=== PATIENT | male | born 1950 | race Caucasian/White ===

== ENCOUNTER → 2017-05-01 | Outpatient (CLI) | payer OTHER | LOC: FIMAGING 16:52 | PROVIDERS: ATTEND Internal Medicine | DX: I82.4Z2 Acute embolism and thrombosis of unspecified deep veins of left distal lower extremity (principal) ==

== ENCOUNTER 2017-05-05 10:57 | Emergency (ER) | payer OTHER ==
[2017-05-05 11:08] VITALS: TEMP 98.2
[2017-05-05] MEDS ORDERED: LIDOCAINE 5% 1 EA PATCH TD ONE (11:44)
--- NOTE | 2017-05-05 11:47 | EDPHY ---
H & P Stated Complaint: dx dvt monday l leg/on oxy but still having pain Time Seen by Provider: 05/05/17 11:22 HPI/ROS: CHIEF COMPLAINT: Left leg pain HISTORY OF PRESENT ILLNESS: The patient presents the ED with complaints of pain in his left leg. The patient was diagnosed with a DVT Monday this week. He was started on anticoagulation at that time. Prior to this, the patient had chronic back pain requiring daily narcotics. He has been on 5 mg of oxycodone twice daily for some period of time. The patient reportedly has had increasing pain in his left leg which is not managed by his typical dose of narcotic medications. The patient has taken more than his typical dose of oxycodone. The patient denies any chest pain or shortness of breath. The patient denies any additional acute complaints. REVIEW OF SYSTEMS: A comprehensive 10 point review of systems is otherwise negative aside from elements mentioned in the history of present illness. Source: Patient Exam Limitations: No limitations - Personal History Current Tetanus/Diphtheria Vaccine: Unsure Tetanus Vaccine Date: 2004 - Medical/Surgical History Hx Asthma: No Hx Chronic Respiratory Disease: No Hx Diabetes: No Hx Cardiac Disease: No Hx Renal Disease: No Hx Cirrhosis: No Hx Alcoholism: No Hx HIV/AIDS: No Hx Splenectomy or Spleen Trauma: No Other PMH: prostate cancer/skin cancer/dvt - Social History Smoking Status: Never smoked - Physical Exam Exam: General Appearance: Alert, no distress Eyes: Pupils equal and round no pallor or injection ENT, Mouth: Mucous membranes moist Respiratory: There are no retractions, lungs are clear to auscultation Cardiovascular: Regular rate and rhythm Gastrointestinal: Abdomen is soft and nontender, no masses, bowel sounds normal Neurological: A&O, normal motor function, normal sensory exam, normal cranial nerves Skin: Warm and dry, no rashes Musculoskeletal: Neck is supple nontender Extremities: Tenderness to palpation left calf, 2+ dorsalis pedis and posterior tibial pulse noted left lower extremity, no cellulitis or abscess Constitutional: Initial Vital Signs Temperature (C) 36.8 C 05/05/17 11:04 Heart Rate 81 05/05/17 11:04 Respiratory Rate 18 05/05/17 11:04 Blood Pressure 161/102 H 05/05/17 11:04 O2 Sat (%) 97 05/05/17 11:04 O2 Delivery Mode Room Air Allergies/Adverse Reactions: milk [Milk] Allergy (Severe, Verified 05/05/17 11:03) DIARRHEA, VOMITING atorvastatin calcium [From Lipitor] Allergy (Intermediate, Verified 05/05/17 11: 03) MUSCLE SORENESS povidone-iodine [From Betadine Surgi-Prep] Allergy (Intermediate, Verified 05/05 11:03) Rash YOGART Allergy (Intermediate, Uncoded 12/21/10 10:57) DIARRHEA, VOMITING Home Medications: Medication Instructions Recorded Coumadin 05/05/17 Gabapentin [Neurontin 300 MG (*)] 300 mg PO HS PRN #30 cap 05/05/17 Lidocaine 5% [Lidoderm 5% Patch 1 ea TD DAILY #12 patch 05/05/17 (*)] Lovenox 05/05/17 Oxycodone HCl 05/05/17 Medical Decision Making ED Course/Re-evaluation: I reviewed the results of the patient's ultrasound study performed on the . He has no evidence of cellulitis or arterial insufficiency. The patient has no evidence of pulmonary embolism clinically. I do feel more comfortable attempting nonnarcotic management of the patient's symptoms instead of escalating his chronic dose of outpatient or cottage. The patient did have a Lidoderm patch applied in the ED. I have also given him a short prescription for gabapentin. The patient will be advised to return to the ER for markedly worsening symptoms , fever, difficulty breathing or other concerns. Differential Diagnosis: Differential diagnosis considered includes DVT, cellulitis, abscess, arterial thrombosis Departure - Departure Disposition: Home, Routine, Self-Care Clinical Impression: Left leg DVT Condition: Good Instructions: Deep Venous Thrombosis (ED) Additional Instructions: 1. You may take 10 mg of oxycodone every 6 hours as needed for pain. 2. Lidoderm patch as prescribed for pain. 3. You have also been given a prescription for gabapentin for pain control. 4. If you require additional pain management, please schedule a follow-up visit with your primary care provider. Referrals: Sara Devine MD [Primary Care Provider] - As per Instructions
[2017-05-05 12:09] VITALS: BP 122/86; PULSE 74; RESP 16; O2SAT 92
[2017-05-05] MEDS ORDERED: PATCH REMOVAL 1 EA PATCH TD SCH (21:00)
== END 2017-05-05 12:19 | disposition home or self-care (01) ==
DX: I82.402 Acute embolism and thrombosis of unspecified deep veins of left lower extremity (principal); Z85.46 Personal history of malignant neoplasm of prostate; Z79.01 Long term (current) use of anticoagulants

== ENCOUNTER → 2017-05-22 | Outpatient (CLI) | payer OTHER ==
[~2017-05-22] MED LIST: IOPAMIDOL (ISOVUE-300) 100 ML BTL ONE
== END ==
LOC: FIMAGING 11:57
PROVIDERS: ATTEND Internal Medicine
DX: I26.99 Other pulmonary embolism without acute cor pulmonale (principal); C61 Malignant neoplasm of prostate; Z86.718 Personal history of other venous thrombosis and embolism
CPT/HCPCS: Q9967

== ENCOUNTER 2017-08-29 12:51 | Inpatient (IN) | payer OTHER ==
[2017-08-29] MEDS ORDERED: IOPAMIDOL (ISOVUE 370) 100 ML BTL IV ONE (13:12)
[2017-08-29] MEDS ORDERED: ONDANSETRON 4 MG/2 ML VIAL IVP PRN (15:17)
[2017-08-29] MEDS ORDERED: ACETAMINOPHEN 325 MG TAB PO PRN (15:17)
[2017-08-29] MEDS ORDERED: ONDANSETRON DISINTEGRATING 4 MG TAB PO PRN (15:17)
[2017-08-29] MEDS ORDERED: ENOXAPARIN 120 MG/0.8 ML SYR SC SCH (15:30)
--- NOTE | 2017-08-29 15:42 | CPEKG ---
Heart Rate: 102 RR Interval: 588 QRSD Interval: 84 QT Interval: 344 QTC Interval: 449 QRS [place]: -67 T Wave [place]: 44 EKG Severity - ABNORMAL ECG - EKG Impression: ATRIAL FIBRILLATION, V-RATE 72-143 EKG Impression: INFERIOR INFARCT, AGE INDETERMINATE EKG Impression: CONSIDER ANTEROSEPTAL INFARCT EKG Impression: ATRIAL FIBRILLATION IS NEW IN COMPARISON TO PRIOR ECG. CLINICAL HISTORY OF EKG Impression: "LARGE" PE WHICH MAY CONTRIBUTE TO SOME OF THE ST/T WAVE CHANGES NOTED. WOULD EKG Impression: CONSIDER REPEAT ECG ASSESSMENT Electronically Signed By: Isreal Mack 29-Aug-2017 16:26:14
[2017-08-29 15:44] LABS: % IMMATURE GRANULYOCYTES 0.3 % (0.0-1.1); ABSOLUTE IMMATURE GRANULOCYTES 0.03 10^3/uL (0.00-0.10); ADD DIFF? NO; ADD MORPH? NO; ADD SCAN? NO; ATYPICAL LYMPHOCYTE FLAG 0 (0-99); FRAGMENT RBC FLAG 0 (0-99); HEMATOCRIT 49.6 % (40.0-51.0); HEMOGLOBIN 17.8 g/dL (13.7-17.5); LEFT SHIFT FLG 0 (0-99); LIPEMIA HEMOLYSIS FLAG 90 (0-99); MEAN CELL HEMOGLOBIN 32.5 pg (27.9-34.1); MEAN CELL HEMOGLOBIN CONCENTR. 35.9 g/dL (32.4-36.7); MEAN CELL VOLUME 90.5 fL (81.5-99.8); MEAN PLATELET VOLUME 9.4 fL (8.7-11.7); PLATELET CLUMPS FLAG 0 (0-99); PLATELET COUNT 162 10^3/uL (150-400); RED BLOOD CELL COUNT 5.48 10^6/uL (4.40-6.38); RED CELL DISTRIBUTION WIDTH 12.8 % (11.5-15.2)
--- NOTE | 2017-08-29 15:51 | PDGENHP ---
History and Physical - Chief Complaint wheezing, SOB - History of Present Illness 67 yo male with h/o prostate cancer diagnosed in 2010 presented to outpt clinic with SOB. He was sent for a CTPA, which showed large volume b/l PE's. He developed DVT in 04/2017 and was started on Lovenox and Coumadin. A CT chest / abd / pelvis was performed in 05/2017 to evaluate for recurrence of malignancy as a source of his DVT. This revealed no malignancy, but a small to moderate volume PE was identified in the RLL. 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 He planned for shoulder surgery in September. He felt well since discontinuing his coumadin and his RLE swelling decreased. 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 Today, he was shoveling dirt and again noticed worsening dyspnea and presented to his PCP's clinic. He denies CP or pleuritic symptoms. He had a flight from [place] 2 months ago, though was anticoagulated at that time. He has had no travel or surgeries since stopping his coumadin 3 weeks ago. He was seen by Dr. Low at [facility] and an initial hypercoagulable workup was sent. He still has some LE edema, but he feels this is improved. No fevers. No abdominal pain, N/V/D or urinary symptoms. He recently had a Botox injection into his bladder for radiation related bladder spasms. He drinks 5 alcoholic beverages per day and has not gone >24 hrs without a drink since the 70's he says. He denies any h/o withdrawal or seizures. He is not interested in alcohol cessation. History Information - Allergies/Home Medication List Allergies/Adverse Reactions: milk [Milk] Allergy (Severe, Verified 05/05/17 11:03) DIARRHEA, VOMITING atorvastatin calcium [From Lipitor] Allergy (Intermediate, Verified 05/05/17 11: 03) MUSCLE SORENESS povidone-iodine [From Betadine Surgi-Prep] Allergy (Intermediate, Verified 05/05 11:03) Rash YOGART Allergy (Intermediate, Uncoded 12/21/10 10:57) DIARRHEA, VOMITING Home Medications: Coumadin 05/05/17 [Last Taken Unknown] Lovenox 05/05/17 [Last Taken Unknown] Oxycodone HCl 05/05/17 [Last Taken Unknown] I have personally reviewed and updated: family history, medical history, social history, surgical history - Past Medical History cancer, hypertension, hyperlipidemia Additional medical history: hepatic steatosis, ?alcohol induced. prostate cancer, s/p prostatectomy 2010. 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 Review of Systems Review of Systems: ROS: 10pt was reviewed & negative except for what was stated in HPI & below Physical Exam Physical Exam: Constitutional: no apparent distress, other (lasha complexion) Eyes: PERRL Ears, Nose, Mouth, Throat: moist mucous membranes Cardiovascular: regular rate and rhythym, no murmur, rub, or gallop Respiratory: no respiratory distress, clear to auscultation Gastrointestinal: normoactive bowel sounds, soft, non-tender abdomen, other ( obese) Skin: warm Musculoskeletal: full muscle strength, other (b/l 1+ non-pitting LE edema with some mild brawny discoloration) Neurologic: AAOx3 Psychiatric: interacting appropriately Lab Data & Imaging Review 08/29/17 15:30 08/29/17 15:30 WBC 8.67 10^3/uL (3.80-9.50) 08/29/17 15:30 RBC 5.48 10^6/uL (4.40-6.38) 08/29/17 15:30 Hgb 17.8 g/dL (13.7-17.5) H 08/29/17 15:30 Hct 49.6 % (40.0-51.0) 08/29/17 15:30 MCV 90.5 fL (81.5-99.8) 08/29/17 15:30 MCH 32.5 pg (27.9-34.1) 08/29/17 15:30 MCHC 35.9 g/dL (32.4-36.7) 08/29/17 15:30 RDW 12.8 % (11.5-15.2) 08/29/17 15:30 Plt Count 162 10^3/uL (150-400) 08/29/17 15:30 MPV 9.4 fL (8.7-11.7) 08/29/17 15:30 Neut % (Auto) 75.2 % (39.3-74.2) H 08/29/17 15:30 Lymph % (Auto) 14.5 % (15.0-45.0) L 08/29/17 15:30 Pickett % (Auto) 8.7 % (4.5-13.0) 08/29/17 15:30 Eos % (Auto) 0.8 % (0.6-7.6) 08/29/17 15:30 Baso % (Auto) 0.5 % (0.3-1.7) 08/29/17 15:30 Nucleat RBC Rel Count 0.0 % (0.0-0.2) 08/29/17 15:30 Absolute Neuts (auto) 6.52 10^3/uL (1.70-6.50) H 08/29/17 15:30 Absolute Lymphs (auto) 1.26 10^3/uL (1.00-3.00) 08/29/17 15:30 Absolute Monos (auto) 0.75 10^3/uL (0.30-0.80) 08/29/17 15:30 Absolute Eos (auto) 0.07 10^3/uL (0.03-0.40) 08/29/17 15:30 Absolute Basos (auto) 0.04 10^3/uL (0.02-0.10) 08/29/17 15:30 Absolute Nucleated RBC 0.00 10^3/uL (0-0.01) 08/29/17 15:30 Immature Gran % 0.3 % (0.0-1.1) 08/29/17 15:30 Immature Gran # 0.03 10^3/uL (0.00-0.10) 08/29/17 15:30 POC Creatinine 1.3 mg/dL (0.7-1.3) 08/29/17 13:17 Visualized and Interpreted EKG results: Yes EKG additional interpertation: ST elevation anterior leads, ?strain, no reciprocal ST depression in V5,V6 Assessment & Plan Assessment: PE - B/L extensive clot burden. PESI score 105, intermediate risk. Note prior DVT and PE history. +e/o right heart strain on CT and EKG. Requiring 3 LPM O2. No tachycardia or hypotension. Daughter with arterial clot recently, raises suspicion for genetic hypercoagulable state. FVL neg in 07/2017. -Start Lovenox/coumadin, will need lifelong anticoagulation. Note HAS-BLED score 3. -telemetry monitoring, O2 -Echo now -trend troponin -check LE u/s -Discussed with Heme, who will see pt. Add on protein C, protein S, lupus anticoagulant, and antithrombin A fib - new Dx. Etoh and PE are risk factors. Chads-vasc Rate controlled currently. No e/o heart failure. -check TSH, echo -trend trop -anticoagulation as above -add dilt if needed for rate control ST elevation on EKG - likely represents strain in setting of large clot burden. No reciprocal ST depression. Pt chest pain free. Discussed with cards. -repeat EKG now -cycle trop Alcohol dependence - no interest in cessation. 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 Hypertension - BP ok on admission, awaiting med rec. Hyperlipidemia - awaiting med rec, but looks like no statin -check lipid status H/O Prostate cancer Full code Dispo - Inpt, will likely require >48 hrs hospitalization for ongoing management of his PE and associated hypoxemia and EKG changes
[2017-08-29 15:54] LABS: INR 1.15 (0.83-1.16); PROTIME(PATIENT) 14.6 SEC (12.0-15.0)
[2017-08-29 16:06] LABS: ALANINE AMINOTRANSFERASE 136 IU/L (21-72); ALBUMIN 4.4 g/dL (3.5-5.0); ALKALINE PHOSPHATASE 82 IU/L (38-126); ANION GAP 14 mEq/L (8-16); ASPARTATE AMINOTRANSFERASE 92 IU/L (17-59); BILIRUBIN,TOTAL 0.9 mg/dL (0.1-1.4); BILIRUBIN-CONJUGATED 0.3 mg/dL (0.0-0.5); BILIRUBIN-UNCONJUGATED 0.6 mg/dL (0.0-1.1); CALCIUM 9.5 mg/dL (8.5-10.4); CARBON DIOXIDE 23 mEq/l (22-31); CHLORIDE 102 mEq/L (97-110); CREATININE 1.2 mg/dL (0.7-1.3); GLOMERULAR FILTRATION RATE > 60; GLUCOSE 101 mg/dL (70-100); SODIUM 139 mEq/L (134-144); TOTAL PROTEIN 6.9 g/dL (6.3-8.2)
--- NOTE | 2017-08-29 16:35 | CPEKG ---
Heart Rate: 103 RR Interval: 583 QRSD Interval: 84 QT Interval: 352 QTC Interval: 461 QRS [place]: -63 T Wave [place]: 39 EKG Severity - ABNORMAL ECG - EKG Impression: ATRIAL FIBRILLATION EKG Impression: LAD, CONSIDER LAFB OR INFERIOR INFARCT EKG Impression: ANTERIOR INFARCT, AGE INDETERMINATE Electronically Signed By: Frank Rubi 30-Aug-2017 11:35:26
[2017-08-29] MEDS ORDERED: WARFARIN SODIUM 5 MG TAB PO ONE (17:00)
[2017-08-29] MEDS ORDERED: DIAZEPAM 10 MG TAB PO PRN (18:38)
[2017-08-29] MEDS: VODKA 50 ML BOTTLE PO SCH (18:42)
[2017-08-29] MEDS ORDERED: NON-FORMULARY NEW DRUG (Simvastatin [Simvastatin] 40 MG) PO SCH (21:00)
[2017-08-29] MEDS ORDERED: ZOLPIDEM TARTRATE 5 MG TAB PO SCH (21:00)
[2017-08-29] MEDS ORDERED: NON-FORMULARY NEW DRUG (Zolpidem Tartrate [Zolpidem Tartrate Er] 12.5 MG) PO SCH (21:00)
--- NOTE | 2017-08-29 21:11 | ECHO ---
[email or web address] [address] [address] Main: [phone] Fax: Transthoracic Echocardiogram Name: STEFAN CAMPOS MR#: [id number] Study Date: 08/29/2017 Study Time: 03:34 PM Date of : 1950 Age: 67 year(s) Height: 185.4 cm (73 in.) Weight: 127.01 kg (280 lb.) BSA: 2.48 m2 Gender: Male Examination: Echo Indication: PE, eval for right heart strain Image Quality: Technically Difficult Contrast: Requested by: Nicolette Serrano BP: 124 mmHg/74 mmHg Heart Rate: Rhythm: Atrial fibrillation Indication: PE, eval for right heart strain Procedure Staff Offal Separator: Kourtney Beyer Reading Physician: Casa Loza Requesting Provider: Conclusions: Normal size left ventricle. Mild concentric LV hypertrophy. Mildly reduced systolic LV function. EF is 42 %. Mildly to moderately dilated right ventricle. Flattened interventricular septum consistent with right ventricular pressure and/or volume overload free wall. The right atrium is mildly to moderately dilated. Trivial mitral valve regurgitation. Mild to moderate tricuspid valve regurgitation. The pulmonary artery pressure is mildly increased. LVEF has decreased compared to 12/31/2010. Measurements: Chambers Valvular Assessment AV/MV Valvular Assessment TV/PV Normal Normal Normal Name Value Range Name Value Range Name Value Range Ao Jasmyne (MM): 3.1 cm (2.2 cm-3.7 AV Vmax: 1.19 m/s (1 m/s-1.7 TR Vmax: 2.57 mm/s ( - ) cm) m/s) TR PGmax: 26 mmHg ( - ) IVSd (2D): 1.0 cm (0.6 cm-1.1 AV maxP mmHg ( - ) syst. PAP: 36 mmHg ( - ) cm) LVOT Vmax: 1.01 m/s (0.7 m/s-1.1 PV Vmax: 1.26 m/s (0.6 m/s-0.9 LVDd (2D): 4.5 cm (4.2 cm-5.9 m/s) m/s) cm) MV E Vmax: 0.96 m/s ( - ) PV PGmax: 6 mmHg ( - ) LVDs (2D): 3.5 cm (2.1 cm-4 cm) LVPWd (2D): 1.0 cm (0.6 cm-1 cm) LVEF (2D): 42 (>=54 %) Patient: STEFAN CAMPOS Study Date: 08/29/2017 Page 1 of 2 03:34 PM RVDd(2D): 4.4 cm (1.9 cm-3.8 cmmm) Continued Measurements: Chambers Valvular Assessment AV/MV Valvular Assessment TV/PV Name Value Name Value Name Value LADs: 5.0 cm MV DecTime: 213 m/s CVP (est.): 10 mmHg LADs Lon.0 cm LA Area: 15.2 cm2 TAPSE: 1.6 cm Additional Vessels Name Value Ao Ascendin.8 cm Findings: Left Ventricle: Normal size left ventricle. Mild concentric LV hypertrophy. Mildly reduced systolic LV function. EF is 42 %. Right Ventricle: Mildly to moderately dilated right ventricle. Mildly reduced RV function. Flattened interventricular septum consistent with right ventricular pressure and/or volume overload free wall. Left Atrium: The left atrium is normal in size. Right Atrium: The right atrium is mildly to moderately dilated. Mitral Valve: The mitral valve is normal in appearance. Trivial mitral valve regurgitation. Aortic Valve: The aortic valve is tri-leaflet. There is no aortic valve regurgitation. No aortic valve stenosis is present. Tricuspid Valve: The tricuspid valve appears normal. Mild to moderate tricuspid valve regurgitation. The pulmonary artery pressure is mildly increased. Pulmonic Valve: Pulmonary valve not well visualized. Aorta: Normal size aortic root measuring 3.1 cm. Normal size ascending aorta measuring 2.8 cm. Pericardium: Trivial anterior pericardial effusion. There is pericardial fat. (No Signature Object) Patient: STEFAN CAMPOS Study Date: 08/29/2017 Page 2 of 2 03:34 PM [id number]
[2017-08-29] MEDS: DIAZEPAM 5 MG TAB PO PRN (21:27)
[2017-08-29] MEDS: GABAPENTIN 300 MG CAP PO SCH (21:27)
[2017-08-29] MEDS: oxyCODONE IR 5 MG TAB PO PRN (21:28)
[2017-08-29] MEDS: SIMVASTATIN 40 MG PO SCH (21:35)
[2017-08-29] MEDS ORDERED: NON-FORMULARY NEW DRUG (Gabapentin [Neurontin] 600 MG) PO SCH (22:00)
[2017-08-30 04:12] LABS: INR 1.16 (0.83-1.16); PROTIME(PATIENT) 14.8 SEC (12.0-15.0)
[2017-08-30 04:46] LABS: ALANINE AMINOTRANSFERASE 93 IU/L (21-72); ALBUMIN 3.4 g/dL (3.5-5.0); ALKALINE PHOSPHATASE 67 IU/L (38-126); ANION GAP 12 mEq/L (8-16); ASPARTATE AMINOTRANSFERASE 51 IU/L (17-59); BILIRUBIN,TOTAL 0.5 mg/dL (0.1-1.4); CARBON DIOXIDE 22 mEq/l (22-31); CHLORIDE 105 mEq/L (97-110); CHOLESTEROL 124 mg/dL (140-220); CHOLESTEROL/HDL RATIO 3.02 RATIO (1.00-4.97); CREATININE 1.2 mg/dL (0.7-1.3); GLOMERULAR FILTRATION RATE > 60; GLUCOSE 103 mg/dL (70-100); HIGH DENSITY LIPOPROTEIN 41 mg/dL (40-65); LDL/HDL RATIO 1.39 RATIO (1.00-3.64); LOW DENSITY LIPOPROTEIN 57 mg/dL (80-100); NON-HIGH DENSITY LIPOPROTEIN 83 mg/dL (90-129); POTASSIUM 4.1 mEq/L (3.5-5.2); SODIUM 139 mEq/L (134-144); TOTAL PROTEIN 5.5 g/dL (6.3-8.2); TRIGLYCERIDE 130 mg/dL (40-150); VERY LOW DENSITY LIPOPROTEINS 26 mg/dL (8-25)
[2017-08-30] MEDS: ENOXAPARIN 30 MG/0.3 ML SYR SC SCH ×2 (06:26→18:14)
[2017-08-30] MEDS: ENOXAPARIN 100 MG/ML SYR SC SCH ×2 (06:26→18:12)
[2017-08-30] MEDS: ASPIRIN EC 81 MG TAB PO SCH (08:24)
[2017-08-30] MEDS: FENOFIBRATE 48 MG TAB PO SCH (08:24)
[2017-08-30] MEDS: GABAPENTIN 300 MG CAP PO SCH ×3 (08:24→21:12)
[2017-08-30] MEDS: DILTIAZEM XR 240 MG CAP PO SCH (08:25)
[2017-08-30] MEDS ORDERED: LISINOPRIL/HCTZ 20/12.5MG 1 EA TAB PO SCH (09:00)
[2017-08-30] MEDS ORDERED: DILTIAZEM HCL 240 MG PO SCH (09:00)
[2017-08-30] MEDS ORDERED: FESOTERODINE FUMARATE 8 MG TAB.ER PO SCH (09:00)
--- NOTE | 2017-08-30 09:18 | ASMTCMCOM ---
CM Note CM Note Notes: Chart reviewed. Patient has bilateral PE's. on oxygen. Lived independent with his . Not interested in alcohol cessation, but will provide information.No therapies ordered. Plan: Likely home with no needs. CM available to follow should other needs arise. Date Signed: 08/30/2017 09:17 AM Electronically Signed By:Stephanie Duvall RN
--- NOTE | 2017-08-30 09:29 | PDMN ---
Medical Necessity Medical necessity: Patient meets INPT criteria per physician note and [facility] [place] M-290 Pulmonary Embolism - (presents w/increasing dyspnea and new atrial fib; documented R ventricular dysfunction/strain via echo and new ST elevation from large volume bilat PE's/clot burden; hypoxia/ 3 LPM supplemental O2 to maintain sat > 90%; alcohol dependence; hx prostate CA and recent DVT/PE 05/2017; anticipated LOS > 2midnights for mgmt. hypoxemia and EKG changes).
[2017-08-30 13:31] LABS: PROTEIN S FREE ANTIGEN 104 % (65 - 160)
[2017-08-30 13:36] LABS: ANTITHROMBIN 3 ANTIGEN 70 % (80 - 120); PROTEIN C ACTIVITY 78 % (70 - 150)
[2017-08-30 13:44] LABS: DILUTE RUSSELLS VIPER VENOM 0.9 ratio (0.0 - 1.1); INR 1.1; INTERPRETATION See Comments; PTT 29 sec (26 - 36)
--- NOTE | 2017-08-30 15:10 | HOSPPROG ---
Hospitalist Progress Note Assessment/Plan: * Large volume PE with right heart strain - recurrent -Lovenox, warfarin -likely needs lifelong anticoagulation -hypercoag work-up negative - will add PT gene mutation * Afib - not new - has has h/o PAF -rate a little rapid - will continue home PO diltiazem and monitor -should improve as PE dissolves -this another indication for anticoagulation * Systolic CHF - EF 40% - new -needs ischemic eval - can be done as outpatient when clot burden reduced * Etoh -continue vodka -no evidence for withdrawal * Prostate cancer - recent CT without recurrence * Obesity BMI 37, with BANDAR - O2 at night Subjective: Feeling better Objective: Vital Signs Temp Pulse Resp BP Pulse Ox 36.6 C 83 18 124/79 H 96 08/30/17 11:25 08/30/17 11:25 08/30/17 11:25 08/30/17 11:25 08/30/17 11:25 Laboratory Results 08/29/17 15:30 08/30/17 03:32 08/29/17 08/30/17 08/31/17 05:59 05:59 05:59 Intake Total 200 Output Total 1 Balance 199 PT 14.8 SEC (12.0-15.0) 08/30/17 03:32 INR 1.16 (0.83-1.16) 08/30/17 03:32 case d/w Dr. Haynes - Dr. Vines notes from [place] reviewed ECHO - RV strain with EF 40% Ct chest - large volume PE tele reviewed - afib, a little rapid - Physical Exam Constitutional: no apparent distress, appears nourished, not in pain Cardiovascular: regular rate and rhythym, no murmur, rub, or gallop Respiratory: no respiratory distress, no rales or rhonchi, clear to auscultation Gastrointestinal: normoactive bowel sounds, soft, non-tender abdomen, no palpable masses Skin: no rashes or abrasions, no fluctuance, no induration Neurologic: AAOx3, sensation intact bilaterally Psychiatric: interacting appropriately, not anxious, not encephalopathic, thought process linear ICD10 Worksheet Patient Problems: Problems Problem Status Onset Pulmonary embolism Acute - ICD10 Problem Qualifiers (1) Pulmonary embolism Qualifiers: Pulmonary embolism type: other Chronicity: unspecified Acute cor pulmonale presence: with acute cor pulmonale Qualified Code(s): I26.09 - Other pulmonary embolism with acute cor pulmonale
--- NOTE | 2017-08-30 15:31 | GCON ---
[f rep st] CONSULTATION Amended report INITIAL VISIT CONSULTATION PRIMARY PROJECT ADMIN: Dr. Tripp Low. REASON FOR VISIT: Evaluation management of blood clot. HISTORY OF PRESENT ILLNESS: The patient is a 67-year-old gentleman, who had what sounds like a NSAID spontaneous use unprovoked left lower extremity DVT and asymptomatic PE in April of 2017. He reports his leg was very swollen and discolored, but has returned mostly to normal since treatment. He was doing well and stopped anticoagulation about a month ago. He was on testosterone for hypogonadism, but his hemoglobin went too high. He underwent a phlebotomy and cut his dose in half, but I think it was still running too high, so it was recommended for him to stop. He also has underlying sleep apnea and is on oxygen at night. He was doing quite well, and actually went hunting on August 17, without any difficulty. Starting Monday night, he was getting a little more fatigue and dyspnea with activity that significantly worsened throughout Monday. I believe he went to see Dr. Kearns yesterday, and she referred him over for evaluation, and he was found to have large pulmonary emboli. He is on oxygen, on about 3 L, and he is feeling better since starting on low-molecular weight heparin. While on testosterone, he was feeling really well and actually losing some weight. He denies any other constitutional symptoms. PAST MEDICAL HISTORY: He is allergic to atorvastatin, Povidine iodine from Betadine, yogurt, and milk. HOME MEDICATIONS: Include acetaminophen, zolpidem, fesoterodine fumarate, simvastatin, fenofibrate, diltiazem, aspirin, lisinopril with hydrochlorothiazide, oxycodone, diazepam, and gabapentin. CHRONIC ILLNESSES: Included previous history of atrial fibrillation. He has gotten into and out of hypertension, dyslipidemia, hypogonadism, obesity, hepatic steatosis, sleep apnea, mild chronic kidney disease, and he had prostate cancer, stage unknown, diagnosed 2010, received 1 year of ADT, and prostatectomy. SURGICAL HISTORY: Includes a hernia repair, and prostatectomy with lymph node dissection in 2010. FAMILY HISTORY: A daughter, who is a surgical supply assistant, just was diagnosed with an arterial clot that was limb-threatening, but she is doing better. SOCIAL HISTORY: He is a previous smoker, and he does have a previous heavy use of alcohol. He is . 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 REVIEW OF SYSTEMS: 10-point review of systems performed. Pertinent positives in HPI, otherwise negative. PHYSICAL EXAM: VITAL SIGNS: Temperature is 36.6, pulse is 83, blood pressure is 124/79, saturating 96% on 3 L. GENERAL: He is in no distress. HEENT: He has a plethoric look, but oral mucosa is unremarkable. Sclerae nonicteric. LUNGS: Clear. CARDIAC: Currently regular with no murmur. No lower extremity edema. NEUROLOGICAL: Grossly intact. ABDOMEN: Soft, nontender without palpable masses. LABS: Chemistries on arrival: AST and ALT are slightly elevated, although they are better today. Protein-C, protein-S are normal. They previously were done and normal. Antithrombin antigen is a little low, but activity is normal, and previously those were normal, as well. Factor V Leiden was negative. I am not sure if he has had a prothrombin gene analysis. Factor VIII activity is 130%. Homocystine was high at 19.6. Previous lupus anticoagulant screen was negative. White count today is normal, with a normal platelet count. Hemoglobin is high at 17.8. It was 18.87 a couple weeks ago. IMPRESSION: 1. Recurrent unprovoked pulmonary emboli. 2. Erythrocytosis probably secondary due to the sleep apnea, obesity, and testosterone use. 3. History of prostate cancer. Currently, no evidence of disease. 4. History of atrial fibrillation. PLAN: I think with recurrence of this unprovoked clots and the history of atrial fibrillation, the patient should probably remain on life-long anticoagulation. He was on warfarin before without difficulty. I would recommend going back on the same dose. I explained to him that he needs to be on the Lovenox for about a week to overlap until the warfarin takes full effect. Anticipate that his respiratory issues will slowly improve, but he may need oxygen for while until he is able to heal from this recent event. His risk factors of clots, aside from the atrial fibrillation, include a history of previous clot and the obesity. Patients with increased hemoglobin also have an increased risk of clotting, so that might have contributed, as well. I do not recommend a phlebotomy today, but I will check a JAK2 mutation. I discussed the case with both Dr. Serrano last night, as well as Dr. Odell today. /[id number]/MODL Jose worktype, 09/01/17, eliza RICHARDS
[2017-08-30] MEDS ORDERED: WARFARIN SODIUM 5 MG TAB PO ONE (16:00)
[2017-08-30] MEDS: ALBUTEROL 3 ML DEYVIAL IH PRN (17:24)
[2017-08-30] MEDS: VODKA 50 ML BOTTLE PO SCH (18:12)
[2017-08-30] MEDS: oxyCODONE IR 5 MG TAB PO PRN (21:12)
[2017-08-30] MEDS: SIMVASTATIN 40 MG PO SCH (21:13)
[2017-08-30] MEDS: ZOLPIDEM TARTRATE 12.5 MG PO SCH (21:21)
[2017-08-30] MEDS: DIAZEPAM 5 MG TAB PO PRN (21:26)
[2017-08-31 04:01] LABS: HEMATOCRIT 46.6 % (40.0-51.0); MEAN CELL HEMOGLOBIN 31.9 pg (27.9-34.1); MEAN CELL HEMOGLOBIN CONCENTR. 34.3 g/dL (32.4-36.7); RED BLOOD CELL COUNT 5.01 10^6/uL (4.40-6.38)
[2017-08-31 04:09] LABS: INR 1.09 (0.83-1.16)
[2017-08-31] MEDS: ENOXAPARIN 100 MG/ML SYR SC SCH ×3 (06:04→21:27)
[2017-08-31] MEDS: ENOXAPARIN 30 MG/0.3 ML SYR SC SCH ×3 (06:05→21:27)
[2017-08-31] MEDS: DILTIAZEM XR 240 MG CAP PO SCH (09:24)
[2017-08-31] MEDS: ASPIRIN EC 81 MG TAB PO SCH (09:24)
[2017-08-31] MEDS: GABAPENTIN 300 MG CAP PO SCH ×3 (09:25→21:28)
[2017-08-31] MEDS: FENOFIBRATE 48 MG TAB PO SCH (09:25)
--- NOTE | 2017-08-31 12:11 | SOAPPROG ---
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 Hypercoagulable work up unrevealing. Will probably need lifelong anticoagulation. With elevated hgb will add JAK2 mutation. * Atrial fibrillation: paroxysmal. managed by I[facility]. Further reason to probably continue anticoagulation * Systolic CHF: EF 40%: new problem and managed by [facility]. * History of Prostate cancer: LUKE with non-detectable PSA * Obesity BMI 37 with BANDAR: CPAP with O2 at night. Another risk factor for PE Subjective: Feeling ok although still with decrease stamina. No pain. Objective: Vital Signs Temp Pulse Resp BP Pulse Ox 36.6 C 81 19 105/81 H 94 08/31/17 07:49 08/31/17 07:49 08/31/17 07:49 08/31/17 07:49 08/31/17 07:49 Laboratory Results 08/31/17 03:30 08/30/17 03:32 08/30/17 08/31/17 09/01/17 05:59 05:59 05:59 Intake Total 200 2051 Output Total 1 700 Balance 199 1351 PT 14.0 SEC (12.0-15.0) 08/31/17 03:30 INR 1.09 (0.83-1.16) 08/31/17 03:30 Laboratory Tests 08/29/17 08/31/17 08/31/17 15:30 03:30 03:30 Hgb 17.8 H 16.0 INR 1.09 Prostate Specific Ag 08/31/17 03:30 Hgb INR Prostate Specific Ag < 0.064 Physical Exam - Physical Exam General Appearance: no apparent distress Respiratory: lungs clear Cardiac/Chest: regular rate, rhythm Skin: other (plethoric look to face) Lymphatic: no adenopathy ICD10 Worksheet Patient Problems: Problems Problem Status Onset Pulmonary embolism Acute
--- NOTE | 2017-08-31 14:49 | HOSPPROG ---
Hospitalist Progress Note Assessment/Plan: * Large volume PE with right heart strain - recurrent -Lovenox, warfarin -likely needs lifelong anticoagulation - clearly hypercoagulable -PT gene mutation pending - hypercoag work up otherwise unrevealing * Afib - not new - has has h/o PAF -PO diltiazem -this another indication for anticoagulation * Systolic CHF - EF 40% - new -needs ischemic eval - can be done as outpatient when clot burden reduced * Etoh -continue vodka -no evidence for withdrawal * Prostate cancer - recent CT without recurrence, PSA undetectable * Obesity BMI 37, with BANDAR - O2 at night Subjective: Still very SOB with activity, hasn't really gotten out of bed yet Objective: Vital Signs Temp Pulse Resp BP Pulse Ox 36.4 C 75 16 131/94 H 93 08/31/17 12:00 08/31/17 12:00 08/31/17 12:00 08/31/17 12:00 08/31/17 14:05 Laboratory Results 08/31/17 03:30 08/30/17 03:32 08/30/17 08/31/17 09/01/17 05:59 05:59 05:59 Intake Total 200 2051 Output Total 1 700 Balance 199 1351 PT 14.0 SEC (12.0-15.0) 08/31/17 03:30 INR 1.09 (0.83-1.16) 08/31/17 03:30 - Physical Exam Constitutional: no apparent distress, appears nourished, not in pain Cardiovascular: regular rate and rhythym, no murmur, rub, or gallop Respiratory: no respiratory distress, no rales or rhonchi, clear to auscultation Gastrointestinal: normoactive bowel sounds, soft, non-tender abdomen, no palpable masses Skin: no rashes or abrasions, no fluctuance, no induration Neurologic: AAOx3, sensation intact bilaterally Psychiatric: interacting appropriately, not anxious, not encephalopathic, thought process linear ICD10 Worksheet Patient Problems: Problems Problem Status Onset Pulmonary embolism Acute - ICD10 Problem Qualifiers (1) Pulmonary embolism Qualifiers: Pulmonary embolism type: other Chronicity: unspecified Acute cor pulmonale presence: with acute cor pulmonale Qualified Code(s): I26.09 - Other pulmonary embolism with acute cor pulmonale
[2017-08-31] MEDS ORDERED: WARFARIN SODIUM 7.5 MG TAB PO ONE (16:00)
[2017-08-31] MEDS ORDERED: WARFARIN SODIUM 5 MG TAB PO ONE (16:00)
[2017-08-31] MEDS: VODKA 50 ML BOTTLE PO SCH (16:42)
[2017-08-31] MEDS ORDERED: FESOTERODINE FUMARATE 8 MG TAB.ER PO SCH (21:00)
[2017-08-31] MEDS: DIAZEPAM 5 MG TAB PO PRN (21:28)
[2017-08-31] MEDS: oxyCODONE IR 5 MG TAB PO PRN (21:30)
[2017-08-31] MEDS: SIMVASTATIN 40 MG PO SCH (21:34)
[2017-08-31] MEDS: ZOLPIDEM TARTRATE 12.5 MG PO SCH (21:35)
[2017-08-31] MEDS: ALBUTEROL 3 ML DEYVIAL IH PRN (22:17)
[2017-09-01 04:50] LABS: INR 1.27 (0.83-1.16); PROTIME(PATIENT) 15.9 SEC (12.0-15.0)
[2017-09-01 05:12] VITALS: TEMP 97.9
[2017-09-01 07:52] VITALS: BP 133/93; RESP 18
[2017-09-01] MEDS: FENOFIBRATE 48 MG TAB PO SCH (07:57)
[2017-09-01] MEDS: GABAPENTIN 300 MG CAP PO SCH (07:57)
[2017-09-01] MEDS: ENOXAPARIN 30 MG/0.3 ML SYR SC SCH (07:57)
[2017-09-01] MEDS: ASPIRIN EC 81 MG TAB PO SCH (07:58)
[2017-09-01] MEDS: ENOXAPARIN 100 MG/ML SYR SC SCH (07:58)
[2017-09-01] MEDS: DILTIAZEM XR 240 MG CAP PO SCH (07:58)
--- NOTE | 2017-09-01 09:45 | PDHOMEO2F ---
Home Oxygen Face to Face Home Orders: I certify that a physician or a nurse practitioner or physician's assistant program director has had a [id number] encounter with this patient on the date of this order due to the diagnosis listed, which relates to the primary reason the patient requires home oxygen. Alternative treatments have been tried, or considered, and deemed ineffective. It is anticipated that supplemental oxygen will result in improvement with treatment. Home oxygen qualifying diagnosis: CHF SpO2 on room air (%): 86 Frequency of home oxygen needed: continuous Home oxygen liters per minute: 3 Home oxygen delivery device: nasal cannula Concentrator: Yes E-tanks for mobility and back up: Yes If ordering portable O2, is the patient mobile in the home?: Yes I certify that, based on these findings, the home oxygen is medically necessary for this patient for the following length of time. Length of time home oxygen needed: 1 month
--- NOTE | 2017-09-01 11:12 | SOAPPROG ---
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 Hypercoagulable work up unrevealing. Will probably need lifelong anticoagulation. With elevated hgb I ordered JAK2 mutation. * Atrial fibrillation: paroxysmal. managed by Imed. Further reason to continue anticoagulation * Systolic CHF: EF 40%: new problem and managed by [facility]. * History of Prostate cancer: LUKE with non-detectable PSA * Obesity BMI 37 with BANDAR: CPAP with O2 at night. Another risk factor for PE Subjective: Feeling much better and ready to go home. No CP Objective: Vital Signs Temp Pulse Resp BP Pulse Ox 36.6 C 94 18 133/93 H 84 L 09/01/17 07:49 09/01/17 07:49 09/01/17 07:49 09/01/17 07:49 09/01/17 09:45 Laboratory Results 08/31/17 03:30 08/30/17 03:32 08/31/17 09/01/17 09/02/17 05:59 05:59 05:59 Intake Total 2051 750 Output Total 700 450 Balance 1351 300 PT 15.9 SEC (12.0-15.0) H 09/01/17 04:10 INR 1.27 (0.83-1.16) H 09/01/17 04:10 Physical Exam - Physical Exam General Appearance: no apparent distress Respiratory: normal breath sounds Cardiac/Chest: irregularly irregular ICD10 Worksheet Patient Problems: Problems Problem Status Onset Pulmonary embolism Acute
[2017-09-01 11:32] LABS: PROTEIN S ACTIVITY 92 % (65 - 160)
[2017-09-01] MEDS: ALBUTEROL 3 ML DEYVIAL IH PRN (11:32)
[2017-09-01 11:42] VITALS: PULSE 85; O2SAT 93
[2017-09-01 12:29] LABS: PROTEIN C ANTIGEN 73 % (70-150)
--- NOTE | 2017-09-01 14:46 | ASMTCMCOM ---
CM Note CM Note Notes: 09/01/2017 Case Management Note Pt insurance requires prior auth for Lovenox. Submitted required paperwork to [employer] processing at with clinical notes and request form signed by Dr. Odell. Called [facility] pharmacy in [place] on [address] [facility] at [phone]. Cost for patient to pay breaux is $23.49 for 30 mg generic dose qty 5 and $78.95 for 100 mg dose qty 5. Pt to pay out of pocket and seek reimbursement. Reports reimbursement has happened in the past. Pharmacy open until [address] pt home at d/c. Date Signed: 09/01/2017 02:45 PM Electronically Signed By:Sarah Oneil RN
[2017-09-01] MEDS ORDERED: WARFARIN SODIUM 7.5 MG TAB PO ONE (16:00)
--- NOTE | 2017-09-01 17:25 | GDS ---
[f rep st] DISCHARGE SUMMARY DISCHARGE DIAGNOSES: 1. Large volume pulmonary embolus with right heart strain. 2. Recurrent deep vein thrombosis and pulmonary embolism with suspected hypercoagulable state. 3. Atrial fibrillation, chronic and persistent. 4. Chronic systolic congestive heart failure. Ejection fraction 40%. 5. Persistent alcohol use. 6. Prostate cancer with undetectable PSA and recent negative CT scan. 7. Obesity. BMI 37. 8. Obstructive sleep apnea, on oxygen at night. HISTORY: The patient is a 67-year-old male, who has a previous history of DVT/PE, and he had recentl y stopped anticoagulation. He presented with recurrence of symptoms and now CAT scan shows a large vo lume pulmonary embolus, and his echocardiogram showed right heart strain. Given his failure with disc ontinuation of anticoagulation, he is clearly hypercoagulable and we are recommending lifelong antico agulation. He previously had an incomplete hypercoagulable workup, but the results which have returne d are unrevealing. Added onto his hypercoagulable workup during this hospitalization was a PT gene mu tation and a JAK2 mutation. Both these are pending at discharge and should be followed with primary c are. Patient was observed in the hospital for multiple nights and appears very stable. He is anxious for d ischarge home. He feels very comfortable administering Lovenox, which we will continue for a full 5-d ay bridge overlap with warfarin, and should also be continued until INR is greater than 2. He will fo llow up for INR check with primary care this upcoming Monday. The patient did also have rapid atrial fibrillation during this hospitalization. He does have a histo ry of chronic AFib when he is in a stress situation. He is already on chronic oral diltiazem, which c ontrolled his rate nicely. This is another indication for ongoing anticoagulation. Incidentally noted on echocardiogram with an ejection fraction of only 40%, which did initially appea r reduced compared to our previous echocardiogram on file. Patient, however, recently saw Cardiology as an outpatient and had an outpatient stress test only 2 months ago that was unrevealing. DISCHARGE MEDICATIONS: Please see computer record for full detailed list. NEW MEDICATIONS: 1. Lovenox 130 mg subcu twice b.i.d. to complete a 5-day overlap with warfarin. 2. Warfarin 7.5 mg p.o. daily as his INR was having a very slow response to the 5 mg dose. ADDITIONAL DISCHARGE INSTRUCTIONS: 1. PT gene mutation and JAK2 mutation pending at discharge. Please follow up with primary care. 2. INR check on Monday, and Lovenox should be continued until INR is greater than 2. 3. Continue 24-hour oxygen until room-air saturation is greater than 90%. TIME SPENT: Greater than 30 minutes' time spent arranging this discharge. Patient seen and examined by me on the day of discharge. /[id number]/MODL
--- NOTE | 2017-09-02 12:22 | ASDISCHSUM ---
Discharge Information Plan Status:Home with No Needs Medically Cleared to Leave:08/31/2017 Discharge Date:09/01/2017 05:05 PM CM D/C Disposition:Home, Routine, Self-Care ADT D/C Disposition:Home, Routine, Self-Care Projected Discharge Date:09/01/2017 05:05 PM Transportation at D/C:Family Discharge Delay Reason: Follow-Up Date:09/01/2017 05:05 PM Discharge Slot: Final Diagnosis: Placement Information Patient Contact Information Contact Name:KINGSLEY Relationship: Address:[address] [address] Work Phone: City:[place] Alternate Phone: [facility]/Zip Code:[place] [address] Email: Financial Information Financial Class:HMO and PPO Plans Primary Plan Desc:[facility] Primary Plan Number:[id number] Secondary Plan Desc:MEDICARE INPATIENT Secondary Plan Number:[id number] Assessment Information [facility] CM Progress Note CM Note CM Note Notes: Chart reviewed. Patient has bilateral PE's. on oxygen. Lived independent with his . Not interested in alcohol cessation, but will provide information.No therapies ordered. Plan: Likely home with no needs. CM available to follow should other needs arise. Date Signed: 08/30/2017 09:17 AM Electronically Signed By:Stephanie Duvall RN Case Management Discharge Plan Note Case Management Discharge Discharge Order Complete? Answers: Yes Patient to Obtain Answers: Independently Medications Transportation Arranged Answers: Family/Friends Family Notified Answers: Yes Notes: per pt Discharge Comments Notes: No d/c case management needs. Pt to transport home. IM signed. Date Signed: 09/01/2017 10:34 AM Electronically Signed By:Sarah Oneil RN [facility] CM Progress Note CM Note CM Note Notes: 09/01/2017 Case Management Note Pt insurance requires prior auth for Lovenox. Submitted required paperwork to [employer] processing at with clinical notes and request form signed by Dr. Odell. Called [facility] in [place] on at [phone]. Cost for patient to pay breaux is $23.49 for 30 mg generic dose qty 5 and $78.95 for 100 mg dose qty 5. Pt to pay out of pocket and seek reimbursement. Reports reimbursement has happened in the past. Pharmacy open until [address] pt home at d/c. Date Signed: 09/01/2017 02:45 PM Electronically Signed By:Sarah Oneil RN Intervention Information Intervention Type:*IM-Signed Date of Service:09/01/2017 10:33 AM Patient Type:Inpatient Staff Member:GILMER Oneil Hillary Hours: Discipline: Severity: Comment:
[2017-09-04 15:18] LABS: JAK2 RESULT see interpretation; JAK2 V617F MUTATION DETECTION See Comments
[2017-09-05 15:40] LABS: INTERPRETATION See Comments
== END 2017-09-01 17:05 | disposition home or self-care (01) | DRG 176 ==
LOC: FIMAGING 12:51 → EDSTATUS 14:53 → F2W 14:56 → OBSVTOIN 15:48
PROVIDERS: ADMIT Hospitalist; ATTEND Hospitalist
DX: I26.99 Other pulmonary embolism without acute cor pulmonale (principal); I11.0 Hypertensive heart disease with heart failure; I50.22 Chronic systolic (congestive) heart failure; I48.2 Chronic atrial fibrillation; E66.9 Obesity, unspecified; G47.33 Obstructive sleep apnea (adult) (pediatric); F10.20 Alcohol dependence, uncomplicated; E78.5 Hyperlipidemia, unspecified; Z68.37 Body mass index [BMI] 37.0-37.9, adult; Z79.01 Long term (current) use of anticoagulants; Z86.718 Personal history of other venous thrombosis and embolism; Z87.891 Personal history of nicotine dependence; Z85.46 Personal history of malignant neoplasm of prostate
CPT/HCPCS: 81439-90; 85300-90; 85301-90; 85302-90; 85303-90; 85306-90; 97161-GP; 97165-GO; G8978-GP-CI; G8979-GP-CI; G8980-GP-CI; G8987-GO-CI; G8988-GO-CI; G8989-GO-CI; J1650; Q9967

== ENCOUNTER → 2018-10-03 | Outpatient (CLI) | payer OTHER | LOC: BHLMT 08:30 | PROVIDERS: ATTEND Internal Medicine Cardiovascular Disease | DX: I48.91 Unspecified atrial fibrillation (principal); I10 Essential (primary) hypertension; R53.83 Other fatigue | CPT/HCPCS: 93306-PO ==

== ENCOUNTER → 2018-10-11 | Outpatient (CLI) | payer OTHER | LOC: BHLMT 09:00 | PROVIDERS: ATTEND Internal Medicine Interventional Cardiology | DX: I48.91 Unspecified atrial fibrillation (principal) | CPT/HCPCS: 93225-PO; 93226-PO ==